=== PATIENT | male | born 1990 | race American Indian/Alaskan Native ===

== ENCOUNTER 2021-04-10 12:39 | Emergency (ER) | payer MEDICAID, OTHER ==
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
[2021-04-10] MEDS: Bacitracin Oint 1 GM U/D Packet TOP ONE (14:09)
[2021-04-10] MEDS: Lidocaine 1% with EPINEPHrine 1:100,000 50 ML MDV SUBCUT STA (14:09)
== END 2021-04-10 14:11 ==
LOC: JP.ED 12:39
DX: S01.81XA Laceration without foreign body of other part of head, initial encounter (principal); V49.40XA Driver injured in collision with unspecified motor vehicles in traffic accident, initial encounter; Y92.410 Unspecified street and highway as the place of occurrence of the external cause
CPT/HCPCS: 12052; 99284-25